=== PATIENT | male | born 1930 | race Two or more races ===

== ENCOUNTER 2019-06-13 12:39 | Emergency (ER) | payer MEDICARE, MEDICAID ==
[~2019-06-13] VITALS: Ht 154.9 cm; Wt 68.2 kg
[~2019-06-13 12:39] MED LIST: HALO5TAB23 PO
[2019-06-13 12:46] VITALS: BP 154/74
== END 2019-06-13 14:11 | disposition left against medical advice (07) ==
LOC: EMS 12:40
DX: F22 Delusional disorders (principal); F20.9 Schizophrenia, unspecified; Z79.899 Other long term (current) drug therapy